=== PATIENT | male | born 1955 | race Caucasian/White ===

== ENCOUNTER → 2017-03-19 08:29 | Outpatient (CLI) | payer MEDICARE ==
[2015-07-22 00:57] VITALS: BMI 33.9
[~2017-03-19 08:29] MED LIST: AMOXICILLIN875 MG PO; BACTRIM DS TABL1 TAB PO; BAYER ASPIRIN325 MG PO; GLUCOPHAGE1000 MG PO; GLUCOPHAGE500 MG PO; IMDUR30 MG PO; LIPITOR40 MG PO; LOTREL 5/20 MG1 CAP PO; NEURONTIN 300300 MG PO; NIASPAN500 MG PO; PERCOCET 10/3251 TA1 PO; PLAVIX75 MG PO
== END | disposition home or self-care (01) ==
LOC: D.CT 08:29
DX: C61 Malignant neoplasm of prostate (principal)

== ENCOUNTER 2017-05-04 23:23 | Emergency (ER) | payer MEDICARE ==
[2015-07-22 00:57] VITALS: BMI 33.9
== END 2017-05-05 00:45 | disposition home or self-care (01) ==
LOC: D.ER 23:23
DX: S01.01XA Laceration without foreign body of scalp, initial encounter (principal); S61.411A Laceration without foreign body of right hand, initial encounter; W19.XXXA Unspecified fall, initial encounter; E11.9 Type 2 diabetes mellitus without complications; I10 Essential (primary) hypertension; Z95.1 Presence of aortocoronary bypass graft

== ENCOUNTER → 2017-06-26 13:00 | Outpatient (CLI) | payer MEDICARE ==
[2015-07-22 00:57] VITALS: BMI 33.9
== END | disposition home or self-care (01) ==
LOC: D.CT 13:00
DX: C61 Malignant neoplasm of prostate (principal)

== ENCOUNTER → 2017-07-04 10:12 | Outpatient (CLI) | payer MEDICARE ==
[2015-07-22 00:57] VITALS: BMI 33.9
== END | disposition home or self-care (01) ==
LOC: D.NM 10:12
DX: C61 Malignant neoplasm of prostate (principal)

== ENCOUNTER 2019-05-05 16:03 | Inpatient (IN) | payer MEDICARE ==
[~2019-05-05] VITALS: Ht 180.3 cm; Wt 112.5 kg
[2019-05-08] MEDS ORDERED: XTANDI40 MG PO (12:50)
[2019-05-11 09:32] LABS: BASOPHILS 0 % (0-2); EOSINOPHILS 2.1 % (0-7); HEMATOCRIT 38.7 % (42.0-54.0); HEMOGLOBIN 12.8 g/dL (13.5-17.5); IMMATURE GRANULOCYTES 0.7 % (0-5); LYMPHOCYTES 10.2 % (15-50); MCH 31.1 pg (26.0-34.0); MCHC 33.1 g/dL (31.0-37.0); MCV 93.9 fL (80.0-100.0); MEAN PLATELET VOLUME 8.9 fL (7.4-10.4); MONOCYTES 5.8 % (2-11); NEUTROPHILS 81.2 % (40-80); PLATELET COUNT 228 10x3/uL (130-400); RBC 4.12 10x6/uL (4.20-6.10); RDW 13.6 % (11.5-14.5); WBC 7.2 10x3/uL (4.8-10.8)
[2019-05-11 09:43] LABS: APTT 27.6 SECONDS (22.8-39.4); INR 1.11 (0.85-1.17); PROTIME 13.8 SECONDS (11.6-15.0)
[2019-05-11 10:03] LABS: ANION GAP 11.3 mmol/L (8-16); CARBON DIOXIDE 27.7 mmol/L (21.0-32.0); CREATININE - SERUM 1.2 mg/dL (0.6-1.3)
[2019-05-11] MEDS ORDERED: BAYER CHEWABLE81 MG PO (10:42)
[2019-05-11 10:50] VITALS: BP 165/82; BMI 34.6
[2019-05-12 03:50] VITALS: BP 111/58; BMI 34.6
[2019-05-12 04:31] VITALS: BP 110/65
[2019-05-12 06:27] LABS: BASOPHILS 0.1 % (0-2); EOSINOPHILS 0.1 % (0-7); IMMATURE GRANULOCYTES 0.3 % (0-5); LYMPHOCYTES 4.9 % (15-50); MCH 30.3 pg (26.0-34.0); MCHC 31.9 g/dL (31.0-37.0); MCV 94.9 fL (80.0-100.0); MEAN PLATELET VOLUME 9.3 fL (7.4-10.4); MONOCYTES 7.5 % (2-11); NEUTROPHILS 87.1 % (40-80); PLATELET COUNT 246 10x3/uL (130-400); RDW 13.8 % (11.5-14.5)
[2019-05-12 06:41] LABS: HEMATOCRIT 29.8 % (42.0-54.0); HEMOGLOBIN 9.5 g/dL (13.5-17.5); RBC 3.14 10x6/uL (4.20-6.10); WBC 11.1 10x3/uL (4.8-10.8)
[2019-05-12 06:50] LABS: ALBUMIN 2.6 g/dL (3.4-5.0); ANION GAP 10.7 mmol/L (8-16); BILIRUBIN - TOTAL 0.32 mg/dL (0.2-1.3); CALCIUM 7.8 mg/dL (8.5-10.1); CARBON DIOXIDE 26.2 mmol/L (21.0-32.0); CREATININE - SERUM 1.2 mg/dL (0.6-1.3); PROTEIN - SERUM 5.8 g/dL (6.4-8.2)
[2019-05-12 06:52] LABS: POTASSIUM - SERUM 4.9 mmol/L (3.5-5.1)
--- NOTE | 2019-05-12 08:15 | OP ---
PATIENT NAME: NILSA ANDERSON MEDICAL RECORD: [id number] :53 LOCATION:D.[id number] ADMISSION DATE:05/11/19 SURGEON: MAR HERR MD DATE OF OPERATION: 05/11/2019 SURGEON: Mar Del RioJNona Herr MD PREOPERATIVE DIAGNOSES: 1. Colon cancer. 2. Prostate cancer. 3. Diabetes. 4. Hypertension. 5. Coronary artery disease. POSTOPERATIVE DIAGNOSES: 1. Colon cancer. 2. Prostate cancer. 3. Diabetes. 4. Hypertension. 5. Coronary artery disease. PROCEDURES PERFORMED: 1. Exploratory laparotomy. 2. Total abdominal colectomy with end ileostomy. 3. Mobilization of splenic flexure. 4. Lysis of adhesions. 5. Placement of left subclavian tunneled port with immediate interpretation of fluoroscopy. ANESTHESIA: General. COMPLICATIONS: None. SPECIMENS: Colon and mesentery. ESTIMATED BLOOD LOSS: 1000 cc. WOUND CLASS: Clean/contaminated. COMPLICATIONS: None. OPERATIVE COURSE: After consent was obtained, the patient was taken to the operating room and placed in the supine position on the operating table. Next, general anesthesia was given. Time-out was taken to confirm correct patient and procedure. The PowerPort was done first. The left chest was prepped and draped in typical sterile fashion. External landmarks were identified. An Ioban dressing was placed. Time-out was taken to confirm correct patient and procedure. A 30 cc of local anesthetic was injected in the left chest wall. The left subclavian vein was cannulated on the first pass. Under fluoroscopy, a guidewire was advanced with the needle into the atriocaval junction. The needle was removed. The dilator and breakaway sheath were then passed over the wire in standard Seldinger fashion. A skin incision was made on the left chest wall with a #15 blade scalpel. Dissection was continued with electrocautery to the pectoralis fascia. A pocket was created using OPERATIVE REPORT [id number] NILSA ANDERSON electrocautery. The tunneling device was then used to tunnel the catheter from the skin incision site to the needle stick site. The catheter was cut to length. The wire and the dilator were removed. The catheter was passed through the breakaway sheath under fluoroscopy and advanced to the atriocaval junction. The breakaway sheath was removed. The port was accessed. Blood was aspirated. It was then flushed with 30 cc of normal saline with 5000 units of heparin. The port was then secured to the pectoralis fascia using interrupted 2-0 Prolene suture. The subcutaneous tissue was reapproximated using 3-0 Vicryl suture. The skin was reapproximated using 4-0 Monocryl running subcuticular sutures. Skin was reinforced with Mastisol and Steri-Strips. At the end of the case, all needle and instrument counts were correct. No complications occurred. At this time, all dressings were removed. The abdomen was then prepped and draped in typical sterile fashion, and Ioban dressing was again placed. The previous skin incision was opened from the pubis to just above the umbilicus. Using a #15 blade scalpel, dissection was continued to subcutaneous tissues and electrocautery. Once the fascia was identified, it was incised with electrocautery. The peritoneum was grasped with Eduarda clamps and was incised with Metzenbaum scissors. Under direct vision, remaining portion of the incision was opened with electrocautery. An David wound retractor was placed into the abdomen. At this time, extensive lysis of adhesions was performed. Once the lysis of adhesions was completed, there was full mobilization of the small bowel. The small bowel was followed from the ligament of Treitz to the ileocolonic anastomosis that was in the upper midline. A mesenteric window was created just proximal to the ileocolonic anastomosis. The terminal ileum was transected using a linear cutting 75-mm stapler. The mesentery was taken with the Harmonic scalpel. Next, the splenic flexure was mobilized using combination of electrocautery and Harmonic scalpel dissection. Once the splenic flexure was mobilized, the white line of Toldt was taken using electrocautery to allow full mobilization of the transverse colon and the descending colon. Next, the mesentery was taken using the Harmonic scalpel to the level of the pelvis. The left ureter was dissected out and intact. A Vesseloop was placed. The right ureter was dissected out and Vesseloop was placed. At this time, the remaining portion of the mesentery was taken using the Harmonic scalpel. The avascular plane on the sacral promontory was opened using blunt dissection. The peritoneal reflection was opened using electrocautery. The remaining portion of the colon and rectum dissection was completed using combination of electrocautery and Harmonic scalpel. The Contour stapler with green load stapler was then used to staple off the distal rectum. The remaining mesentery was divided with the Harmonic scalpel. At this time, the specimen was passed off the field and sent for permanent pathology. The abdomen was irrigated with 5 liters of warm normal saline. Careful attention was paid to hemostasis. Methylene blue was administered half-way during the early portion of the case. There was no evidence of discolored fluid within the abdomen or the pelvis. The Vesseloops were removed. At this time, a circular incision was made in the right lower quadrant. Subcutaneous tissue was dissected down to the level of the anterior oblique fascia. A cruciate incision was made. The muscles were gently divided. The peritoneum was incised with electrocautery. A [place] was placed through the abdominal opening. The terminal ileum staple line was grasped and delivered through the incision to the anterior abdominal wall. At this time, all members of the surgical team changed gown and gloves using the sterile closure tray. The abdomen was reprepped and draped. The fascia was closed with #1 looped PDS. Skin was closed with godwin. Primapore dressings OPERATIVE REPORT [id number] NILSA ANDERSON were then placed for the midline wound. The ostomy was then prepped and draped in typical sterile fashion. The staple line was transected using electrocautery. The ileostomy was fashioned in a typical Makayla fashion using 3-0 Vicryl suture. An ostomy appliance was placed. At the end of the case, all needle and instrument counts were correct. No complications occurred. The patient was extubated and transferred to the PACU in stable condition. TRANSINT:[id number] Voice Confirmation ID: [id number] DOCUMENT ID: [id number] MAR HERR MD at 0815 CC: [id number] DICTATION DATE: 05/11/19 163 CASE MANAGER: 05/11/191923 ADM IN [facility] [address] [place] [id number]
[2019-05-12 08:46] VITALS: BP 122/65
[2019-05-12 13:15] VITALS: BP 116/63
[2019-05-12 14:32] VITALS: Ht 180.3 cm; Wt 112.5 kg
[2019-05-12 17:33] VITALS: BP 120/60
[2019-05-12 20:19] VITALS: BP 116/58
[2019-05-13 00:58] VITALS: BP 114/56
[2019-05-13 04:54] VITALS: BP 121/51
[2019-05-13 06:34] LABS: BASOPHILS 0 % (0-2); EOSINOPHILS 0.2 % (0-7); IMMATURE GRANULOCYTES 0.7 % (0-5); LYMPHOCYTES 5.3 % (15-50); MCH 30.4 pg (26.0-34.0); MCHC 31.5 g/dL (31.0-37.0); MCV 96.5 fL (80.0-100.0); MEAN PLATELET VOLUME 8.9 fL (7.4-10.4); MONOCYTES 8.2 % (2-11); NEUTROPHILS 85.6 % (40-80); PLATELET COUNT 206 10x3/uL (130-400); RDW 14.4 % (11.5-14.5)
[2019-05-13 06:47] LABS: ANION GAP 8.9 mmol/L (8-16); CREATININE - SERUM 1.1 mg/dL (0.6-1.3)
[2019-05-13 06:52] LABS: POTASSIUM - SERUM 3.9 mmol/L (3.5-5.1)
[2019-05-13 07:26] LABS: HEMATOCRIT 22.2 % (42.0-54.0)
[2019-05-13 15:13] LABS: HEMATOCRIT 25.9 % (42.0-54.0); HEMOGLOBIN 8.4 g/dL (13.5-17.5)
--- NOTE | 2019-05-13 16:52 | MORECARE ---
CASE MANAGEMENT DISCHARGE SUMMARY PATIENT: NILSA RICH UNIT: [id number] ADM DATE: 05/11/19 AGE: 64 : 54 SEX: M ROOM/BED: D.2228 AUTHOR: GABRIEL,DOC PHYSICIAN: REFERRING PHYSICIAN: MAR HERR MD DATE OF SERVICE: 05/13/19 Discharge Plan Patient Name: NILSA RICH Facility: [facility]:[place] : 1955 Planned Disposition: Home with Home Health Anticipated Discharge Date: Discharge Date: Expected LOS: Initial Reviewer: [email or web address] Initial Review Date: 05/13/2019 Generated: 05/13/19 5:52 pm DCPIA - Discharge Planning Initial Assessment Updated by [email or web address]: Marguerite Xie on 05/13/19 4:50 pm * Is the patient Alert and Oriented? Yes * How many steps to enter\exit or inside your home? 4/0 * PCP Bennie Nogueira * Pharmacy [facility] * Preadmission Environment Home with Family * ADLs Partial Dependent * Partial ADLs (Assistance needed) Ambulation Bathing Medication Management * Equipment Cane * List name and contact numbers for known caregivers / representatives who currently or will assist patient after discharge: Yumiko Rich - spouse - [phone] * Verbal permission to speak to the caregivers and representatives has been obtained from the patient. Yes * Community resources currently utilized None * Additional services required to return to the preadmission environment? Yes * Can the patient safely return to the preadmission environment? Yes * Has this patient been hospitalized within the prior 30 days at any hospital? No External Providers External Provider: [facility] Next Contact Date: Service Request Date: Service Type: Resolution: Reviewer: Comments: Coverage Notice Reviewer: [id number] - Marguerite Xie Notice Issued Date-Time: 05/13/2019 16:42 Notice Type: Patient Choice Letter Notice Delivered To: Family Member Relationship to Patient: Spouse Putty Remover Name: Yumiko Rich Delivery Method: HAND - Hand Delivered Natalie Days: Prior Verbal Notification: Recipient Understood Notice: Yes Recipient Signature: Yes Med Rec Note Co-signed by Attending: Coverage Notice Comment: HERMELINDO for 1. [facility] 2. [facility] Patient Name: NILSA RICH Page [id number] at 1652 All edits/amendments must be made on the electronic document DICTATION DATE: 05/13/191650 NUCLEAR SECURITY OFFICER: EMILIANO 05/13/191650 RPT#: [id number] DC DATE: STATUS: ADM IN [facility] [address] [place] [address] END OF REPORT
--- NOTE | 2019-05-13 17:00 | MORECARE ---
CASE MANAGEMENT DISCHARGE SUMMARY PATIENT: NILSA RICH UNIT: [id number] ADM DATE: 05/11/19 AGE: 64 : 54 SEX: M ROOM/BED: D.2228 AUTHOR: GABRIEL,DOC PHYSICIAN: REFERRING PHYSICIAN: MAR HERR MD DATE OF SERVICE: 05/13/19 Discharge Plan Patient Name: NILSA RICH Facility: [facility]:[place] : 1955 Planned Disposition: Home with Home Health Anticipated Discharge Date: Discharge Date: Expected LOS: Initial Reviewer: [email or web address] Initial Review Date: 05/13/2019 Generated: 05/13/19 6:00 pm Comments DCP- Discharge Planning Updated by [email or web address]: Marguerite Xie on 05/13/19 3:[address] Patient Name: NILSA RICH Admission Status: Elective Accout number: [id number] Admission Date: 05-11-2019 : 1955 Admission Diagnosis:MALIGNANT NEOPLASM OF COLON, UNSPECIFIED Attending: MAR HERR Current LOS: 2 Anticipated DC Date: Planned Disposition: Home with Home Health Primary Insurance: [employer] Discharge Planning Comments: CM met with patient to discuss discharge planning/needs, his is present in the room. Patient gives verbal permission to discuss discharge planning/needs with . Patient's states that he lives with her in a one level home, there are 4 steps to enter the home. He uses a cane if needed for ambulation and has no other medical equipment. I discussed the availability of rehab, SNF, DME and home health. states plan is to go home with home health. HERMELINDO for [facility] signed. I called [facility] and spoke with [facility]ara and clinical faxed. I gave them a list of ostomy DME companies in [place] as well as information on getting supplies mailed to them. I informed her that home health would take care of getting them the supplies and help with set up. CM will continue to follow and assist with discharge planning/needs. Swimming Pool Maintenance: Marguerite Xie DCPIA - Discharge Planning Initial Assessment Updated by [email or web address]: Marguerite Xie on 05/13/19 4:50 pm * Is the patient Alert and Oriented? Yes * How many steps to enter\exit or inside your home? 4/0 * PCP Bennie Nogueira * Pharmacy [facility] [address] * Preadmission Environment Home with Family * ADLs Partial Dependent * Partial ADLs (Assistance needed) Ambulation Bathing Medication Management * Equipment Cane * List name and contact numbers for known caregivers / representatives who currently or will assist patient after discharge: Yumiko Rich - spouse - [phone] * Verbal permission to speak to the caregivers and representatives has been obtained from the patient. Yes * Community resources currently utilized None * Additional services required to return to the preadmission environment? Yes * Can the patient safely return to the preadmission environment? Yes * Has this patient been hospitalized within the prior 30 days at any hospital? No Coverage Notice Reviewer: [id number] Aquilino Xie Notice Issued Date-Time: 05/13/2019 16:42 Notice Type: Patient Choice Letter Notice Delivered To: Family Member Relationship to Patient: Spouse Dairy Cattle Farmer Name: Yumiko Rich Delivery Method: HAND - Hand Delivered Natalie Days: Prior Verbal Notification: Recipient Understood Notice: Yes Recipient Signature: Yes Med Rec Note Co-signed by Attending: Coverage Notice Comment: HERMELINDO for 1. [facility]. [facility] Last DP export: 05/13/19 3:52 p Patient Name: NILSA RICH Page 11056 at 1700 All edits/amendments must be made on the electronic document DICTATION DATE: 05/13/19 1700 DYNAMOMETER REPAIRER: EMILIANO 05/13/19 1700 RPT#: [id number] DC DATE: STATUS: ADM IN [facility] [address] [place] [address] END OF REPORT
[2019-05-13 20:49] VITALS: BP 111/46
[2019-05-13 21:21] LABS: HEMATOCRIT 26.1 % (42.0-54.0); HEMOGLOBIN 8.5 g/dL (13.5-17.5)
[2019-05-14 00:39] VITALS: BP 134/56
[2019-05-14 04:54] VITALS: BP 133/56
[2019-05-14 07:22] LABS: BASOPHILS 0.1 % (0-2); EOSINOPHILS 1.2 % (0-7); HEMOGLOBIN 8.4 g/dL (13.5-17.5); IMMATURE GRANULOCYTES 0.6 % (0-5); LYMPHOCYTES 6.9 % (15-50); MCH 30.3 pg (26.0-34.0); MCHC 32.3 g/dL (31.0-37.0); MEAN PLATELET VOLUME 9.2 fL (7.4-10.4); MONOCYTES 6.7 % (2-11); NEUTROPHILS 84.5 % (40-80); PLATELET COUNT 214 10x3/uL (130-400); RBC 2.77 10x6/uL (4.20-6.10); RDW 15.5 % (11.5-14.5); WBC 10.8 10x3/uL (4.8-10.8)
[2019-05-14 07:23] LABS: MCV 93.9 fL (80.0-100.0)
[2019-05-14 07:48] LABS: CALC OSMOLALITY 281 mosm/kg (275-300); CALCIUM 8.4 mg/dL (8.5-10.1); CARBON DIOXIDE 27.6 mmol/L (21.0-32.0); CHLORIDE - SERUM 106 mmol/L (98-107); GLUCOSE 174 mg/dL (74-106); POTASSIUM - SERUM 3.7 mmol/L (3.5-5.1); SODIUM 140 mmol/L (136-145); UREA NITROGEN 10 mg/dL (7-18); eGFR NON AFRICAN AMERICAN 80 mL/min (90-120)
[2019-05-14 08:20] VITALS: BP 122/52
[2019-05-14 13:08] VITALS: BP 134/62
[2019-05-14 16:33] VITALS: BP 121/51
[2019-05-14 21:48] VITALS: BP 129/63
[2019-05-15 01:27] VITALS: BP 154/86
[2019-05-15 05:00] LABS: BASOPHILS 0.1 % (0-2); EOSINOPHILS 1.3 % (0-7); HEMATOCRIT 24.6 % (42.0-54.0); HEMOGLOBIN 8.1 g/dL (13.5-17.5); IMMATURE GRANULOCYTES 1.1 % (0-5); LYMPHOCYTES 7.5 % (15-50); MCHC 32.9 g/dL (31.0-37.0); MCV 94.3 fL (80.0-100.0); MEAN PLATELET VOLUME 8.9 fL (7.4-10.4); MONOCYTES 7.5 % (2-11); NEUTROPHILS 82.5 % (40-80); PLATELET COUNT 215 10x3/uL (130-400); RBC 2.61 10x6/uL (4.20-6.10); WBC 8.5 10x3/uL (4.8-10.8)
[2019-05-15 05:22] LABS: CALC OSMOLALITY 278 mosm/kg (275-300); CALCIUM 7.9 mg/dL (8.5-10.1); CHLORIDE - SERUM 103 mmol/L (98-107); CREATININE - SERUM 0.9 mg/dL (0.6-1.3); GLUCOSE 147 mg/dL (74-106); SODIUM 139 mmol/L (136-145); UREA NITROGEN 8 mg/dL (7-18); eGFR NON AFRICAN AMERICAN 90 mL/min (90-120)
[2019-05-15 05:24] LABS: POTASSIUM - SERUM 3.1 mmol/L (3.5-5.1)
[2019-05-15 06:07] VITALS: BP 135/55
[2019-05-15 09:24] VITALS: BP 110/61
[2019-05-15 12:58] VITALS: BP 132/63
[2019-05-15 16:32] VITALS: BP 118/63
[2019-05-15 20:43] VITALS: BP 127/64
[2019-05-16 04:48] VITALS: BP 125/54
[2019-05-16 08:34] LABS: BASOPHILS 0.1 % (0-2); EOSINOPHILS 1.9 % (0-7); HEMATOCRIT 26.6 % (42.0-54.0); HEMOGLOBIN 8.5 g/dL (13.5-17.5); IMMATURE GRANULOCYTES 1.1 % (0-5); LYMPHOCYTES 9.3 % (15-50); MCH 30.4 pg (26.0-34.0); MEAN PLATELET VOLUME 9.2 fL (7.4-10.4); MONOCYTES 8.8 % (2-11); NEUTROPHILS 78.8 % (40-80); PLATELET COUNT 234 10x3/uL (130-400); RDW 14.6 % (11.5-14.5); WBC 7.2 10x3/uL (4.8-10.8)
[2019-05-16 08:46] LABS: CALC OSMOLALITY 281 mosm/kg (275-300); CARBON DIOXIDE 33.9 mmol/L (21.0-32.0); CHLORIDE - SERUM 105 mmol/L (98-107); CREATININE - SERUM 0.8 mg/dL (0.6-1.3); GLUCOSE 149 mg/dL (74-106); POTASSIUM - SERUM 3.1 mmol/L (3.5-5.1); SODIUM 141 mmol/L (136-145); UREA NITROGEN 8 mg/dL (7-18); eGFR NON AFRICAN AMERICAN > 90 mL/min (90-120)
[2019-05-16 08:58] VITALS: BP 115/58
[2019-05-16 14:14] VITALS: BP 111/60
[2019-05-16 17:27] VITALS: BP 114/60
[2019-05-16 20:18] VITALS: BP 132/55
[2019-05-17 00:37] VITALS: BP 147/62
[2019-05-17 05:34] VITALS: BP 122/68
[2019-05-17 05:50] LABS: BASOPHILS 0.1 % (0-2); EOSINOPHILS 2.5 % (0-7); HEMATOCRIT 26.9 % (42.0-54.0); HEMOGLOBIN 8.7 g/dL (13.5-17.5); IMMATURE GRANULOCYTES 1.5 % (0-5); LYMPHOCYTES 8.8 % (15-50); MCH 30.5 pg (26.0-34.0); MCHC 32.3 g/dL (31.0-37.0); MCV 94.4 fL (80.0-100.0); MEAN PLATELET VOLUME 9.2 fL (7.4-10.4); MONOCYTES 8.4 % (2-11); NEUTROPHILS 78.7 % (40-80); PLATELET COUNT 276 10x3/uL (130-400); RBC 2.85 10x6/uL (4.20-6.10); RDW 14.6 % (11.5-14.5); WBC 7.9 10x3/uL (4.8-10.8)
[2019-05-17 06:03] LABS: CALC OSMOLALITY 282 mosm/kg (275-300); CALCIUM 8.2 mg/dL (8.5-10.1); CARBON DIOXIDE 32.4 mmol/L (21.0-32.0); CHLORIDE - SERUM 102 mmol/L (98-107); CREATININE - SERUM 0.9 mg/dL (0.6-1.3); GLUCOSE 160 mg/dL (74-106); POTASSIUM - SERUM 3.1 mmol/L (3.5-5.1); SODIUM 141 mmol/L (136-145); UREA NITROGEN 10 mg/dL (7-18); eGFR NON AFRICAN AMERICAN 90 mL/min (90-120)
[2019-05-17 08:30] VITALS: BP 153/65
[2019-05-17 13:20] VITALS: BP 121/48
[2019-05-17 16:12] VITALS: BP 120/55
[2019-05-17 20:33] VITALS: BP 133/59
[2019-05-18 05:08] VITALS: BP 122/72
[2019-05-18 06:25] LABS: BASOPHILS 0.1 % (0-2); EOSINOPHILS 2.7 % (0-7); HEMATOCRIT 27.3 % (42.0-54.0); HEMOGLOBIN 8.6 g/dL (13.5-17.5); IMMATURE GRANULOCYTES 1.3 % (0-5); LYMPHOCYTES 7.7 % (15-50); MCHC 31.5 g/dL (31.0-37.0); MCV 95.1 fL (80.0-100.0); MEAN PLATELET VOLUME 9.2 fL (7.4-10.4); MONOCYTES 8.7 % (2-11); NEUTROPHILS 79.5 % (40-80); PLATELET COUNT 316 10x3/uL (130-400); RBC 2.87 10x6/uL (4.20-6.10); RDW 14.8 % (11.5-14.5); WBC 9.4 10x3/uL (4.8-10.8)
[2019-05-18 06:45] LABS: CALC OSMOLALITY 280 mosm/kg (275-300); CALCIUM 8.5 mg/dL (8.5-10.1); CARBON DIOXIDE 29.2 mmol/L (21.0-32.0); CHLORIDE - SERUM 102 mmol/L (98-107); CREATININE - SERUM 0.8 mg/dL (0.6-1.3); GLUCOSE 158 mg/dL (74-106); POTASSIUM - SERUM 3.5 mmol/L (3.5-5.1); SODIUM 139 mmol/L (136-145); eGFR NON AFRICAN AMERICAN > 90 mL/min (90-120)
[2019-05-18 06:46] LABS: UREA NITROGEN 13 mg/dL (7-18)
[2019-05-18] MEDS ORDERED: HYDROCODON-ACE1 EAC7 PO (08:03)
[2019-05-18] MEDS ORDERED: LOMOTIL 2.5-0.1 EAC1 PO (08:03)
--- NOTE | 2019-05-18 08:50 | MORECARE ---
CASE MANAGEMENT DISCHARGE SUMMARY PATIENT: NILSA RICH UNIT: [id number] ADM DATE: 05/11/19 AGE: 64 : 54 SEX: M ROOM/BED: D.2228 AUTHOR: GABRIEL,DOC PHYSICIAN: REFERRING PHYSICIAN: MAR HERR MD DATE OF SERVICE: 05/18/19 Discharge Plan Patient Name: NILSA RICH Facility: [facility]:[place] : 1955 Planned Disposition: Home with Home Health Anticipated Discharge Date: Discharge Date: Expected LOS: Initial Reviewer: [email or web address] Initial Review Date: 05/13/2019 Generated: 05/18/19 9:50 am Comments DCP- Discharge Planning Updated by [id number]: Valeria Tello on 05/18/19 7:[address] Patient Name: NILSA RICH Admission Status: Elective Accout number: [id number] Admission Date: 05-11-2019 : 1955 Admission Diagnosis:MALIGNANT NEOPLASM OF COLON, UNSPECIFIED Attending: MAR HERR Current LOS: 7 Anticipated DC Date: Planned Disposition: Home with Home Health Primary Insurance: [employer] Discharge Planning Comments: PT DISCHARGING TODAY WITH [facility]. ORDERS FAXED TO PROVIDER. CM INFORMED [facility] WOUND NURSE THAT PT NEEDED TEACHING BEFORE DC. IMM SIGNED AND PLACED IN MEDCIAL RECORD. Energy Sales Consultant: Valeria Tello DCP- Discharge Planning Updated by [id number]: Marguerite Xie on 05/13/19 3:[address] Patient Name: NILSA RICH Admission Status: Elective Accout number: [id number] Admission Date: 05-11-2019 : 1955 Admission Diagnosis:MALIGNANT NEOPLASM OF COLON, UNSPECIFIED Attending: MAR HERR Current LOS: 2 Anticipated DC Date: Planned Disposition: Home with Home Health Primary Insurance: [employer] Discharge Planning Comments: CM met with patient to discuss discharge planning/needs, his is present in the room. Patient gives verbal permission to discuss discharge planning/needs with . Patient's states that he lives with her in a one level home, there are 4 steps to enter the home. He uses a cane if needed for ambulation and has no other medical equipment. I discussed the availability of rehab, SNF, DME and home health. states plan is to go home with home health. HERMELINDO for [facility] signed. I called [facility] and spoke with Sahara and clinical faxed. I gave them a list of ostomy DME companies in [place] as well as information on getting supplies mailed to them. I informed her that home health would take care of getting them the supplies and help with set up. CM will continue to follow and assist with discharge planning/needs. Energy Sales Consultant: Marguerite Xie DCPIA - Discharge Planning Initial Assessment Updated by [email or web address]: Marguerite Xie on 05/13/19 4:50 pm * Is the patient Alert and Oriented? Yes * How many steps to enter\exit or inside your home? 4/0 * PCP Bennie Nogueira * Pharmacy [facility] [address] * Preadmission Environment Home with Family * ADLs Partial Dependent * Partial ADLs (Assistance needed) Ambulation Bathing Medication Management * Equipment Cane * List name and contact numbers for known caregivers / representatives who currently or will assist patient after discharge: Yumiko Rich - spouse - [phone] * Verbal permission to speak to the caregivers and representatives has been obtained from the patient. Yes * Community resources currently utilized None * Additional services required to return to the preadmission environment? Yes * Can the patient safely return to the preadmission environment? Yes * Has this patient been hospitalized within the prior 30 days at any hospital? No Coverage Notice Reviewer: [id number] - Marguerite Xie Notice Issued Date-Time: 05/13/2019 16:42 Notice Type: Patient Choice Letter Notice Delivered To: Family Member Relationship to Patient: Spouse Manager Housekeeping Name: Yumiko Rich Delivery Method: HAND - Hand Delivered Natalie Days: Prior Verbal Notification: Recipient Understood Notice: Yes Recipient Signature: Yes Med Rec Note Co-signed by Attending: Coverage Notice Comment: HERMELINDO for 1. [facility] 2. [facility] Reviewer: [id number] Aquilino Tello Notice Issued Date-Time: 05/18/2019 8:40 Notice Type: IM Discharge Notice Notice Delivered To: Patient Relationship to Patient: Self Manager Housekeeping Name: Delivery Method: HAND - Hand Delivered Natalie Days: Prior Verbal Notification: Recipient Understood Notice: Yes Recipient Signature: Yes Med Rec Note Co-signed by Attending: Coverage Notice Comment: Last DP export: 05/13/19 4:00 p Patient Name: NILSA RICH Page [phone] at 0850 All edits/amendments must be made on the electronic document DICTATION DATE: 05/18/1949 APPLICATIONS PROGRAMMER ANALYST: EMILIANO 05/18/1950 RPT#: [id number] DC DATE: STATUS: ADM IN [facility] [address] [place] [address] END OF REPORT
[2019-05-18 09:11] VITALS: BP 119/69
--- NOTE | 2019-05-18 12:47 | MORECARE ---
CASE MANAGEMENT DISCHARGE SUMMARY PATIENT: NILSA RICH UNIT: [id number] ADM DATE: 05/11/19 AGE: 64 : 53 SEX: M ROOM/BED: D.2228 AUTHOR: GABRIEL,DOC PHYSICIAN: REFERRING PHYSICIAN: MAR HERR MD DATE OF SERVICE: 05/18/19 Discharge Plan Patient Name: NILSA RICH Facility: [facility]:[place] : 1955 Planned Disposition: Home with Home Health Anticipated Discharge Date: Discharge Date: 05/18/2019 Expected LOS: Initial Reviewer: [email or web address] Initial Review Date: 05/13/2019 Generated: 05/18/19 1:46 pm Comments DCP- Discharge Planning Updated by [id number]: Valeria Tello on 05/18/19 7:[address] Patient Name: NILSA RICH Admission Status: Elective Accout number: [id number] Admission Date: 05-11-2019 : 1955 Admission Diagnosis:MALIGNANT NEOPLASM OF COLON, UNSPECIFIED Attending: MAR HERR Current LOS: 7 Anticipated DC Date: Planned Disposition: Home with Home Health Primary Insurance: [employer] Discharge Planning Comments: PT DISCHARGING TODAY WITH [facility]. ORDERS FAXED TO PROVIDER. CM INFORMED [facility] WOUND NURSE THAT PT NEEDED TEACHING BEFORE DC. IMM SIGNED AND PLACED IN MEDCIAL RECORD. Hypoid Gear Tester: Valeria Tello DCP- Discharge Planning Updated by [email or web address]: Marguerite Xie on 05/13/19 3:[address] Patient Name: NILSA RICH Admission Status: Elective Accout number: [id number] Admission Date: 05-11-2019 : 1955 Admission Diagnosis:MALIGNANT NEOPLASM OF COLON, UNSPECIFIED Attending: MAR HERR Current LOS: 2 Anticipated DC Date: Planned Disposition: Home with Home Health Primary Insurance: [employer] Discharge Planning Comments: CM met with patient to discuss discharge planning/needs, his is present in the room. Patient gives verbal permission to discuss discharge planning/needs with . Patient's states that he lives with her in a one level home, there are 4 steps to enter the home. He uses a cane if needed for ambulation and has no other medical equipment. I discussed the availability of rehab, SNF, DME and home health. states plan is to go home with home health. HERMELINDO for [facility] signed. I called [facility] and spoke with Sahara and clinical faxed. I gave them a list of ostomy DME companies in [place] as well as information on getting supplies mailed to them. I informed her that home health would take care of getting them the supplies and help with set up. CM will continue to follow and assist with discharge planning/needs. Hypoid Gear Tester: Marguerite Xie DCPIA - Discharge Planning Initial Assessment Updated by [id number]: Marguerite Xie on 05/13/19 4:50 pm * Is the patient Alert and Oriented? Yes * How many steps to enter\exit or inside your home? 4/0 * PCP Bennie Nogueira * Pharmacy [facility] [address] * Preadmission Environment Home with Family * ADLs Partial Dependent * Partial ADLs (Assistance needed) Ambulation Bathing Medication Management * Equipment Cane * List name and contact numbers for known caregivers / representatives who currently or will assist patient after discharge: Yumiko Rich - spouse - [phone] * Verbal permission to speak to the caregivers and representatives has been obtained from the patient. Yes * Community resources currently utilized None * Additional services required to return to the preadmission environment? Yes * Can the patient safely return to the preadmission environment? Yes * Has this patient been hospitalized within the prior 30 days at any hospital? No Coverage Notice Reviewer: [id number] - Marguerite Xie Notice Issued Date-Time: 05/13/2019 16:42 Notice Type: Patient Choice Letter Notice Delivered To: Family Member Relationship to Patient: Spouse Optomechanical Engineer Name: Yumiko Rich Delivery Method: HAND - Hand Delivered Natalie Days: Prior Verbal Notification: Recipient Understood Notice: Yes Recipient Signature: Yes Med Rec Note Co-signed by Attending: Coverage Notice Comment: HERMELINDO for 1. [facility] 2. [facility] Reviewer: [email or web address] Aquilino Tello Notice Issued Date-Time: 05/18/2019 8:40 Notice Type: IM Discharge Notice Notice Delivered To: Patient Relationship to Patient: Self Optomechanical Engineer Name: Delivery Method: HAND - Hand Delivered Natalie Days: Prior Verbal Notification: Recipient Understood Notice: Yes Recipient Signature: Yes Med Rec Note Co-signed by Attending: Coverage Notice Comment: Last DP export: 05/18/19 7:50 a Patient Name: NILSA RICH Page 24747 at 1247 All edits/amendments must be made on the electronic document DICTATION DATE: 05/18/19 1246 CARGO SERVICE SUPERVISOR: EMILIANO 05/18/19 1246 RPT#: [id number] DC DATE:05/18/19 STATUS: DIS IN [facility] [address] [place] [address] END OF REPORT
== END 2019-05-18 10:11 | disposition home health service (06) | DRG 330 ==
LOC: D.SDCHOLD 05-11 08:59 → D.MS 05-11 08:59 → D.SDCHOLD 05-11 11:00 → D.MS 05-11 17:27
PROVIDERS: Anesthesiology; ADMIT Surgery; ATTEND Surgery
PROC: 0JH63XZ Insertion of Tunneled Vascular Access Device into Chest Subcutaneous Tissue and Fascia, Percutaneous Approach (ICD-10-PCS; 2019-05-11)
PROC: 0DTE0ZZ Resection of Large Intestine, Open Approach (ICD-10-PCS; principal; 2019-05-11 11:20)
PROC: 0D1B0Z4 Bypass Ileum to Cutaneous, Open Approach (ICD-10-PCS; 2019-05-11 11:20)
DX: C18.9 Malignant neoplasm of colon, unspecified (principal); D62 Acute posthemorrhagic anemia; C61 Malignant neoplasm of prostate

== ENCOUNTER 2019-06-06 19:37 | Inpatient (IN) | payer MEDICARE ==
[~2019-06-06] VITALS: Ht 180.3 cm; Wt 102.1 kg
[~2019-06-06 19:37] MED LIST changes: +BAYER CHEWABLE81 MG PO; +HYDROCODON-ACE1 EAC7 PO; +LOMOTIL 2.5-0.1 EAC1 PO; +XTANDI40 MG PO
[2019-06-06] MEDS ORDERED: AUGMENTIN 875-11 TAB PO (19:52)
[2019-06-06] MEDS ORDERED: MACRODANTIN100 MG PO (19:52)
[2019-06-06 20:05] LABS: BASOPHILS 0.1 % (0-2); HEMATOCRIT 34.5 % (42.0-54.0); HEMOGLOBIN 11.8 g/dL (13.5-17.5); IMMATURE GRANULOCYTES 0.3 % (0-5); LYMPHOCYTES 10.4 % (15-50); MCH 30.2 pg (26.0-34.0); MCHC 34.2 g/dL (31.0-37.0); MCV 88.2 fL (80.0-100.0); MEAN PLATELET VOLUME 9.2 fL (7.4-10.4); MONOCYTES 7.8 % (2-11); NEUTROPHILS 80.4 % (40-80); PLATELET COUNT 320 10x3/uL (130-400); RBC 3.91 10x6/uL (4.20-6.10); RDW 13.5 % (11.5-14.5)
[2019-06-06 20:23] LABS: ALBUMIN 4.1 g/dL (3.4-5.0); ANION GAP 21.1 mmol/L (8-16); BILIRUBIN - TOTAL 0.45 mg/dL (0.2-1.3); CALCIUM 9.8 mg/dL (8.5-10.1); CARBON DIOXIDE 20.3 mmol/L (21.0-32.0); CREATININE - SERUM 4.5 mg/dL (0.6-1.3); POTASSIUM - SERUM 4.4 mmol/L (3.5-5.1); PROTEIN - SERUM 8.7 g/dL (6.4-8.2)
[2019-06-06 20:58] LABS: APPEARANCE TURBID (CLEAR); BILIRUBIN NEGATIVE (NEGATIVE); COLOR RED (YELLOW); GLUCOSE NEGATIVE (NEGATIVE); KETONE NEGATIVE (NEGATIVE); NITRITE NEGATIVE (NEGATIVE); PROTEIN 2+ mg/dL (NEGATIVE); SPECIFIC GRAVITY 1.025 (1.005-1.020); UROBILINOGEN NORMAL (NORMAL)
[2019-06-06 20:59] LABS: AMORPHOUS SEDIMENT <1+ /lpf (NONE SEEN); RED CELLS - URINE 25-50 /hpf (0-5); WHITE CELLS - URINE 0-5 /hpf (0-5)
--- NOTE | 2019-06-06 21:00 | NUR ---
BLADDER SCAN PERFORMED, 0 ML NOTED. EDP NOTIFIED.
--- NOTE | 2019-06-06 21:45 | NUR ---
PT RESTING ON BED. NO S/S OF ACUTE DISTRESS NOTED. PT SPOUSE AT BEDSIDE.
--- NOTE | 2019-06-06 22:25 | NUR ---
pt ambulated to restroom independently without difficulty. no distress noted.
[2019-06-07] VITALS (7 sets, daily range): BP systolic 74–118; BP diastolic 40–64; BMI 31.4
--- NOTE | 2019-06-07 00:18 | NUR ---
PT ARRIVED TO UNIT BY BED AND AMBULATED FROM BED TO BED. PT PRESENTS WITH A CLARKE CATH WITH URINE OUTPUT IN BAG. A/O X4. RESP EVEN AND UNLABORED. CL IN REACH. PT ALSO PRESENTS WITH COLOSTOMY BAG INTACT. IV NOTED TO LEFT AC WITH NS ATTACHED. WILL CONTINUE TO MONITOR.
--- NOTE | 2019-06-07 01:54 | NUR ---
PT COMPLAINING OF RESTLESS LEGS. TELEPHONE ORDER FROM BRONWYN VALERIO FOR TYLENOL 650 Q4PRN. TYLENOL GIVEN PER ORDER. DENIES FURTHER NEEDS. WCTM CL IN REACH. IN ROOM.
[2019-06-07 05:29] LABS: BASOPHILS 0.1 % (0-2); EOSINOPHILS 2.1 % (0-7); IMMATURE GRANULOCYTES 0.4 % (0-5); LYMPHOCYTES 14.4 % (15-50); MCH 29.9 pg (26.0-34.0); MCHC 34.1 g/dL (31.0-37.0); MCV 87.7 fL (80.0-100.0); MONOCYTES 9.5 % (2-11); NEUTROPHILS 73.5 % (40-80); RDW 13.5 % (11.5-14.5)
[2019-06-07 05:31] LABS: HEMATOCRIT 26.4 % (42.0-54.0); PLATELET COUNT 223 10x3/uL (130-400); RBC 3.01 10x6/uL (4.20-6.10); WBC 7.7 10x3/uL (4.8-10.8)
[2019-06-07 05:49] LABS: ANION GAP 17.3 mmol/L (8-16); CALCIUM 8.2 mg/dL (8.5-10.1); CARBON DIOXIDE 18.1 mmol/L (21.0-32.0); CREATININE - SERUM 3.7 mg/dL (0.6-1.3)
[2019-06-07 05:50] LABS: POTASSIUM - SERUM 3.4 mmol/L (3.5-5.1)
--- NOTE | 2019-06-07 06:26 | NUR ---
PT RESTING QUIETLY. CL IN REACH. NO DISTRESS NOTED. RESP EVEN AND UNLABORED. IN ROOM. PT EMPTIES OUT OWN COLOSTOMY OUTPUT FROM THIS SHIFT WAS 300CC AND URINE OUTPUT WAS 550CC. WCTM
--- NOTE | 2019-06-07 07:30 | NUR ---
AWAKE AND ALERT. ORIENTED X3. NO C/O AT THIS TIME. LUNGS ARE CLEAR BILATERALLY, NO COUGH NOTED. SKIN IS INTACT WITHOUT REDNESS. ILEOSTOMY IS PATENT WITH LIQUID GREENISH STOOL. STOMA IS PINK AND VIABLE. IV TO LEFT FOREARM IS PATENT WITHOUT REDNESS AT INSERTION SITE. CLARKE PATENT WITH CLEAR YELLOW URINE. DENIES NEEDS.
--- NOTE | 2019-06-07 10:00 | NUR ---
DR HERR HERE. NEW ORDERS RECIEVED.
[2019-06-07 11:05] LABS: % SATURATION 22 % (15-55); IRON 65 ug/dl (35-150); TOTAL IRON BIND CAPACITY 293 ug/dl (260-445); UNSAT IRON BIND CAPACITY 228 ug/dl (150-375)
--- NOTE | 2019-06-07 11:30 | NUR ---
FSBS 100. NO COVERAGE REQUIRED.FAMILY AT BEDSIDE.
[2019-06-07 13:23] LABS: APPEARANCE CLEAR (CLEAR); BILIRUBIN NEGATIVE (NEGATIVE); COLOR STRAW (YELLOW); GLUCOSE NEGATIVE (NEGATIVE); KETONE NEGATIVE (NEGATIVE); NITRITE NEGATIVE (NEGATIVE); PROTEIN TRACE mg/dL (NEGATIVE); UROBILINOGEN NORMAL (NORMAL)
[2019-06-07 13:26] LABS: BACTERIA FEW /hpf (NONE SEEN); EPITHELIAL CELLS 0-5 /hpf (0-5); RED CELLS - URINE 0-5 /hpf (0-5); WHITE CELLS - URINE 0-5 /hpf (0-5)
--- NOTE | 2019-06-07 17:00 | NUR ---
FSBS 95. NO ACTION TAKEN
--- NOTE | 2019-06-07 18:47 | NUR ---
ATE MOST OF CL SUPPER. OSTOMY IS LEAKING. APPLIANCE CHANGED PER STAFF. INSTRUCTED IN CARE OF SAME. ALL QUESTIONS ANSWERED. BP CONTINUES LOW AFTER BOLUS COMPLETED. WILL MONITOR.
--- NOTE | 2019-06-07 19:30 | NUR ---
PT ALERT, VOICES NEEDS, AT BEDSIDE, NO C/O @ THIS TIME
--- NOTE | 2019-06-07 21:45 | NUR ---
PT ASLEEP WITH NO DISTRESS NOTED
--- NOTE | 2019-06-08 | NUR ---
PT AWAKE SITTING UP IN CHAIR WATCHING TV WITH NO C/O
[2019-06-08 00:30] VITALS: BP 85/41
--- NOTE | 2019-06-08 02:00 | NUR ---
PT ASLEEP IN BED WITHOUT DISTRESS
--- NOTE | 2019-06-08 04:00 | NUR ---
PT AROUSES EASILY, VOICES NEEDS, VITALS STABLE
[2019-06-08 04:25] VITALS: BP 88/40
--- NOTE | 2019-06-08 06:07 | NUR ---
PT AWAKE, NO C/O, NO CHANGES NOTED
[2019-06-08 06:29] LABS: BASOPHILS 0.2 % (0-2); EOSINOPHILS 3.5 % (0-7); HEMATOCRIT 23.9 % (42.0-54.0); HEMOGLOBIN 7.8 g/dL (13.5-17.5); IMMATURE GRANULOCYTES 0.2 % (0-5); LYMPHOCYTES 14.3 % (15-50); MCH 29.4 pg (26.0-34.0); MCHC 32.6 g/dL (31.0-37.0); MEAN PLATELET VOLUME 9.1 fL (7.4-10.4); MONOCYTES 8.4 % (2-11); NEUTROPHILS 73.4 % (40-80); PLATELET COUNT 187 10x3/uL (130-400); RBC 2.65 10x6/uL (4.20-6.10); RDW 13.7 % (11.5-14.5)
[2019-06-08 06:35] LABS: MCV 90.2 fL (80.0-100.0); WBC 4.9 10x3/uL (4.8-10.8)
[2019-06-08 06:39] LABS: ANION GAP 13.8 mmol/L (8-16); CARBON DIOXIDE 22.3 mmol/L (21.0-32.0)
[2019-06-08 06:41] LABS: CREATININE - SERUM 2.3 mg/dL (0.6-1.3); POTASSIUM - SERUM 4.1 mmol/L (3.5-5.1)
--- NOTE | 2019-06-08 07:32 | NUR ---
AM ROUNDS PT UP TO CHAIR, RESTING COMFORTABLY WITH EYES CLOSED, EASILY AROUSES TO VOICE. INTRODUCED SELF PT'S NURSE FOR TODAY. PT A/O X4, RESP EVEN AND NONLABORED ON RA. LT AC INFUSING NS AT 250. LT INFUSAPORT SL. CLARKE DRAINING YELLOW URINE TO GRAVITY. PT DENIES ANY NEEDS AT THIS TIME. CALL LIGHT IN AIDAN, RUBIN NOTED,W ILL CONTINUE PLAN OF CARE.
[2019-06-08 09:33] VITALS: BP 113/41
--- NOTE | 2019-06-08 10:15 | NUR ---
UNIT OF PRBCS STARTED INFUSING, TO LT UPPER CHEST INFUSAPORT. VITAL SIGNS STABLE, ALSO GAVE AM MEDS AT THIS TIME. HELD BP DUE TO LOW BP. PT DENIES ANY NEEDS AT THIS TIME, CALL LIGHT IN REACH, NAD NOTED,W ILL CONTINUE PLAN OF CARE.
--- NOTE | 2019-06-08 11:36 | NUR ---
BLOOD SUGAR OF 116, NO COVERAGE NEEDED PER S/S. PT DENIES ANY NEEDS AT THIS TIME. CALL LIGHT IN REACH, NAD NOTED, WILL CONTINUE TO MONITOR.
[2019-06-08 12:06] VITALS: Ht 180.3 cm; Wt 102.1 kg
[2019-06-08 12:16] VITALS: BP 106/55
[2019-06-08 16:20] VITALS: BP 125/66
--- NOTE | 2019-06-08 16:57 | NUR ---
BLOOD SUGAR OF 161, PT REFUSED COVERAGE AT THIS TIME. UP TO CHAIR, EATING DINNER, DENIES ANY NEEDS AT THIS TIME. CALL LIGHT IN REACH, NAD NOTED, WILL CONTINUE TO MONITOR.
--- NOTE | 2019-06-08 19:29 | NUR ---
PATIENT RESTING IN BED AND DENIES NEEDS AT THIS TIME. BED IN LOWEST POSITION AND CALL LIGHT WITHIN REACH. ENCOURAGED THE PATIENT TO CALL IF HE HAS NEEDS. WILL CONTINUE TO MONITOR.
[2019-06-08 20:00] VITALS: BP 125/57
[2019-06-09 06:58] VITALS: BP 127/70
[2019-06-09 07:01] LABS: BASOPHILS 0 % (0-2); EOSINOPHILS 5.5 % (0-7); IMMATURE GRANULOCYTES 0.2 % (0-5); MCH 29.4 pg (26.0-34.0); MCHC 32.9 g/dL (31.0-37.0); MCV 89.6 fL (80.0-100.0); MEAN PLATELET VOLUME 9.2 fL (7.4-10.4); MONOCYTES 9.1 % (2-11); NEUTROPHILS 75.2 % (40-80); PLATELET COUNT 191 10x3/uL (130-400); RDW 14.1 % (11.5-14.5); WBC 5.3 10x3/uL (4.8-10.8)
[2019-06-09 07:13] LABS: ANION GAP 14.6 mmol/L (8-16); CALCIUM 8.2 mg/dL (8.5-10.1); CARBON DIOXIDE 21.6 mmol/L (21.0-32.0); CREATININE - SERUM 1.9 mg/dL (0.6-1.3); POTASSIUM - SERUM 4.2 mmol/L (3.5-5.1)
[2019-06-09 07:19] LABS: HEMATOCRIT 29.2 % (42.0-54.0); HEMOGLOBIN 9.6 g/dL (13.5-17.5); RBC 3.26 10x6/uL (4.20-6.10)
[2019-06-09 08:00] VITALS: BP 138/67
--- NOTE | 2019-06-09 09:29 | NUR ---
AM MEDS GIVEN AT THIS TIME. PT UP TO CHAIR, A/O X4, RESP EVEN AND NONLABORED ON RA. LT AC IV SL, LT CHEST INFUSAPORT INFUSING NS AT 125CC/HR. PT DENIES ANY NEEDS AT THIS TIME. CALL LIGHT IN REACH, NAD NOTED, WILL CONTINUE TO MONITOR.
--- NOTE | 2019-06-09 10:41 | NUR ---
CLARKE CATHETER REMOVED WITH CATHETER TIP INTACT. PT TOLERATED WELL. PT UP TO CHAIR, DENIES ANY NEEDS AT THIS TIME. CALL LIGHT IN REACH, NAD NOTED, WILL CONTINUE PLAN OF CARE.
--- NOTE | 2019-06-09 12:15 | MORECARE ---
CASE MANAGEMENT DISCHARGE SUMMARY PATIENT: NILSA RICH UNIT: [id number] ADM DATE: 06/06/19 AGE: 64 : 53 SEX: M ROOM/BED: D.1208 AUTHOR: EDGARD RIOS PHYSICIAN: REFERRING PHYSICIAN: SERGIO JORGENSEN MD DATE OF SERVICE: 06/09/19 Discharge Plan Patient Name: [facility]ILSA RICH [facility] [facility] 1955 Planned Disposition: Home with Home Health Anticipated Discharge Date: 06/11/19 Discharge Date: Expected LOS: 5 Initial Reviewer: [email or web address] Initial Review Date: 06/07/2019 Generated: 06/09/19 1:15 pm DCPIA - Discharge Planning Initial Assessment Updated by [email or web address]: Swati Ocampo on 06/09/19 12:14 pm * Is the patient Alert and Oriented? Yes * How many steps to enter\exit or inside your home? * PCP Dr. Nogueira * Pharmacy [facility] on [address] * Preadmission Environment Home with Family * ADLs Partial Dependent * Partial ADLs (Assistance needed) Bathing Dressing Medication Management * Equipment Bedside Commode Cane Glucometer Rolling Walker Wheelchair * List name and contact numbers for known caregivers / representatives who currently or will assist patient after discharge: Yumiko Rich - [facility] - [phone] * Verbal permission to speak to the caregivers and representatives has been obtained from the patient. Yes * Community resources currently utilized Home Health * Please name any agencies selected above. HERMELINDO signed for [facility] resumption. * Additional services required to return to the preadmission environment? No * Can the patient safely return to the preadmission environment? Yes * Has this patient been hospitalized within the prior 30 days at any hospital? No Patient Name: NLISA RICH Page [id number] at 1215 All edits/amendments must be made on the electronic document DICTATION DATE: 06/09/19 1215 SUPERVISOR POWDERED METAL: EMILIANO 06/09/19 1215 RPT#: [id number] DC DATE: STATUS: ADM IN [facility] [address] [place] [address] END OF REPORT
--- NOTE | 2019-06-09 12:23 | MORECARE ---
CASE MANAGEMENT DISCHARGE SUMMARY PATIENT: NILSA RICH UNIT: [id number] ADM DATE: 06/06/19 AGE: 64 : 53 SEX: M ROOM/BED: D.1208 AUTHOR: EDGARD RIOS PHYSICIAN: REFERRING PHYSICIAN: SERGIO JORGENSEN MD DATE OF SERVICE: 06/09/19 Discharge Plan Patient Name: NILSA RICH Facility: [facility]:[place] : 1955 Planned Disposition: Home with Home Health Anticipated Discharge Date: 06/11/19 Discharge Date: Expected LOS: 5 Initial Reviewer: [email or web address] Initial Review Date: 06/07/2019 Generated: 06/09/19 1:23 pm Comments DCP- Discharge Planning Updated by [email or web address]: Swati Ocampo on 06/09/19 11:[address] Patient Name: NILSA RICH Admission Status: ER Accout number: [id number] Admission Date: 06-06-2019 : 1955 Admission Diagnosis: Attending: SERGIO JORGENSEN Current LOS: 3 Anticipated DC Date: 06-11-2019 Planned Disposition: Home with Home Health Primary Insurance: [email or web address] Discharge Planning Comments: DC PLAN: Return home with and resumption of [facility]. DC NEEDS: Resumption of [facility]. CM met with patient to complete initial dc planning assessment. CM educated patient on the CM role and verbal consent given by patient to complete assessment. CM verified patient's address, phone number, and emergency contact phone numbers. Patient lives at home with his whom is his primary cg. He requires assistance with most adl's and medication management. He currently has [facility] and he wishes to resume at discharge. HERMELINDO signed for [facility] and placed in his chart. At discharge patient plans to return home with his and feels this is a safe discharge. Patient denied known discharge needs at this time. Patient reports his will transport him home at time of discharge. CM will continue to follow and will assist as needed with dc plans/needs. Change Lead: Swati Ocampo RN [facility] DCPIA - Discharge Planning Initial Assessment Updated by [email or web address]: Swati Ocampo on 06/09/19 12:14 pm * Is the patient Alert and Oriented? Yes * How many steps to enter\exit or inside your home? * PCP Dr. Nogueira * Pharmacy [facility] on [address] * Preadmission Environment Home with Family * ADLs Partial Dependent * Partial ADLs (Assistance needed) Bathing Dressing Medication Management * Equipment Bedside Commode Cane Glucometer Rolling Walker Wheelchair * List name and contact numbers for known caregivers / representatives who currently or will assist patient after discharge: Yumiko Rich - [facility] - [phone] * Verbal permission to speak to the caregivers and representatives has been obtained from the patient. Yes * Community resources currently utilized Home Health * Please name any agencies selected above. HERMELINDO signed for [facility] resumption. * Additional services required to return to the preadmission environment? No * Can the patient safely return to the preadmission environment? Yes * Has this patient been hospitalized within the prior 30 days at any hospital? No Last DP export: 06/09/19 11:15 a Patient Name: NILSA RICH Page 13713 at 1223 All edits/amendments must be made on the electronic document DICTATION DATE: 06/09/19 1223 CHOCOLATIER: EMILIANO 06/09/19 1223 RPT#: [id number] DC DATE: STATUS: ADM IN [facility] [address] [place] [address] END OF REPORT
--- NOTE | 2019-06-09 14:44 | NUR ---
PATIENT REPORTS THAT HE IS I WITH GAIT AND TRANSFERS AND ADLS AND DOES NOT NEED THERAPY AT THIS TIME.
[2019-06-09 18:32] VITALS: BP 131/56
--- NOTE | 2019-06-09 19:50 | NUR ---
REC'D TO CARE. MENTAL HEALTH PROFESSIONAL PER FLOWSHEET. PT UP AMBULATED FROM BED TO CHAIR. VSS. DENIES PAIN OR NEEDS. C/L IN REACH.
[2019-06-09 23:00] VITALS: BP 125/58
--- NOTE | 2019-06-09 23:00 | NUR ---
PT VOIDED CLEAR, YELLOW URINE IN URINAL, AND EMPTIED ILESTOMY INDEPENDENTLY - THICK BROWN STOOL NOTED. PT REMAINS UP IN CHAIR. DENIES NEEDS. C/L IN REACH.
--- NOTE | 2019-06-10 01:00 | NUR ---
PT LYING IN BED, RESTING WITH EYES CLOSED, NO SIGN OF DISTRESS. C/L IN REACH.
--- NOTE | 2019-06-10 03:30 | NUR ---
PT UP TO VOID, THEN UP IN CHAIR. VSS. PT GIVEN FRESH WATER, DENIES OTHER NEEDS.
[2019-06-10 03:45] VITALS: BP 130/46
[2019-06-10 06:08] LABS: BASOPHILS 0 % (0-2); EOSINOPHILS 5.4 % (0-7); HEMATOCRIT 25.7 % (42.0-54.0); HEMOGLOBIN 8.6 g/dL (13.5-17.5); IMMATURE GRANULOCYTES 0.3 % (0-5); LYMPHOCYTES 9.6 % (15-50); MCHC 33.5 g/dL (31.0-37.0); MCV 89.5 fL (80.0-100.0); MONOCYTES 8.3 % (2-11); NEUTROPHILS 76.4 % (40-80); PLATELET COUNT 167 10x3/uL (130-400); RBC 2.87 10x6/uL (4.20-6.10)
[2019-06-10 06:25] LABS: ANION GAP 11.7 mmol/L (8-16); CALCIUM 8.7 mg/dL (8.5-10.1); CARBON DIOXIDE 21.4 mmol/L (21.0-32.0); CREATININE - SERUM 1.7 mg/dL (0.6-1.3); POTASSIUM - SERUM 4.1 mmol/L (3.5-5.1); WBC 6.9 10x3/uL (4.8-10.8)
[2019-06-10 07:30] VITALS: BP 118/53
--- NOTE | 2019-06-10 07:30 | NUR ---
PT ALERT AND ORIENTED. VSS AT THIS TIME. RR EVEN AND UNLABORED. NO DISTRESS NOTED. WILL CONTINUE TO MONITOR. 0830- PT SPILLED FECES. PT CLEANED, LINENS AND GOWN CHANGED.
[2019-06-10] MEDS ORDERED: PREVALITE POWD231 GM PO (08:40)
--- NOTE | 2019-06-10 14:06 | NUR ---
PORT ACCESS AND PERIPHERAL IV D/C WITH CATHETER TIP INTACT. D/C PAPERWORK REVIEWED AND SIGNED, NO FURTHER QUESTIONS AND VERBALIZES UNDERSTANDING. ALL BELONGINGS SENT WITH PT. LEFT VIA WHEELCHAIR TO PERSONAL VEHICHLE.
--- NOTE | 2019-06-10 16:58 | MORECARE ---
CASE MANAGEMENT DISCHARGE SUMMARY PATIENT: NILSA RICH UNIT: [id number] ADM DATE: 06/06/19 AGE: 64 : 53 SEX: M ROOM/BED: D.1208 AUTHOR: EDGARD RIOS PHYSICIAN: REFERRING PHYSICIAN: SERGIO JORGENSEN MD DATE OF SERVICE: 06/10/19 Discharge Plan Patient Name: NILSA RICH Facility: [facility]:[place] : 1955 Planned Disposition: Home with Home Health Anticipated Discharge Date: 06/11/19 Discharge Date: 06/10/2019 Expected LOS: 5 Initial Reviewer: [email or web address] Initial Review Date: 06/07/2019 Generated: 06/10/19 5:58 pm DCP- Discharge Planning Updated by [email or web address]: Swati Ocampo on 06/09/19 11:[address] Patient Name: NILSA RICH Admission Status: ER Accout number: [id number] Admission Date: 06-06-2019 : 1955 Admission Diagnosis: Attending: SERGIO JORGENSEN Current LOS: 3 Anticipated DC Date: 06-11-2019 Planned Disposition: Home with Home Health Primary Insurance: [employer] Discharge Planning Comments: DC PLAN: Return home with and resumption of [facility]. DC NEEDS: Resumption of [facility]. CM met with patient to complete initial dc planning assessment. CM educated patient on the CM role and verbal consent given by patient to complete assessment. CM verified patient's address, phone number, and emergency contact phone numbers. Patient lives at home with his whom is his primary cg. He requires assistance with most adl's and medication management. He currently has [facility] and he wishes to resume at discharge. HERMELINDO signed for [facility] and placed in his chart. At discharge patient plans to return home with his and feels this is a safe discharge. Patient denied known discharge needs at this time. Patient reports his will transport him home at time of discharge. CM will continue to follow and will assist as needed with dc plans/needs. Clay Molder: Swati Ocampo RN [facility] DCPIA - Discharge Planning Initial Assessment Updated by [email or web address]: Swati Ocampo on 06/09/19 12:14 pm * Is the patient Alert and Oriented? Yes * How many steps to enter\exit or inside your home? * PCP Dr. Nogueira * Pharmacy [facility] on [address] * Preadmission Environment Home with Family * ADLs Partial Dependent * Partial ADLs (Assistance needed) Bathing Dressing Medication Management * Equipment Bedside Commode Cane Glucometer Rolling Walker Wheelchair * List name and contact numbers for known caregivers / representatives who currently or will assist patient after discharge: Yumiko Rich - [facility] - [phone] * Verbal permission to speak to the caregivers and representatives has been obtained from the patient. Yes * Community resources currently utilized Home Health * Please name any agencies selected above. HERMELINDO signed for [facility] resumption. * Additional services required to return to the preadmission environment? No * Can the patient safely return to the preadmission environment? Yes * Has this patient been hospitalized within the prior 30 days at any hospital? No Last DP export: 06/09/19 11:23 a Patient Name: NILSA RICH Page [id number] at 1658 All edits/amendments must be made on the electronic document DICTATION DATE: 06/10/191657 TYPE COPYIST: EMILIANO 06/10/191657 RPT#: [id number] DC DATE:06/10/19 STATUS: DIS IN [facility] [address] [place] [address] END OF REPORT
--- NOTE | 2019-06-11 10:58 | MORECARE ---
CASE MANAGEMENT DISCHARGE SUMMARY PATIENT: NILSA RICH UNIT: [id number] ADM DATE: 06/06/19 AGE: 64 : 53 SEX: M ROOM/BED: D.1208 AUTHOR: EDGARD RIOS PHYSICIAN: REFERRING PHYSICIAN: SERGIO JORGENSEN MD DATE OF SERVICE: 06/11/19 Discharge Plan Patient Name: INLSA RICH Facility: [facility]:[place] : 1955 Planned Disposition: Home with Home Health Anticipated Discharge Date: 06/11/19 Discharge Date: 06/10/2019 Expected LOS: 5 Initial Reviewer: [email or web address] Initial Review Date: 06/07/2019 Generated: 06/11/19 11:58 am DCP- Discharge Planning Updated by [email or web address]: Swati Ocampo on 06/09/19 11:[address] Patient Name: NILSA RICH Admission Status: ER Accout number: [id number] Admission Date: 06-06-2019 : 1955 Admission Diagnosis: Attending: SERGIO JORGENSEN Current LOS: 3 Anticipated DC Date: 06-11-2019 Planned Disposition: Home with Home Health Primary Insurance: [employer] Discharge Planning Comments: DC PLAN: Return home with and resumption of [facility]. DC NEEDS: Resumption of [facility]. CM met with patient to complete initial dc planning assessment. CM educated patient on the CM role and verbal consent given by patient to complete assessment. CM verified patient's address, phone number, and emergency contact phone numbers. Patient lives at home with his whom is his primary cg. He requires assistance with most adl's and medication management. He currently has [facility] and he wishes to resume at discharge. HERMELINDO signed for [facility] and placed in his chart. At discharge patient plans to return home with his and feels this is a safe discharge. Patient denied known discharge needs at this time. Patient reports his will transport him home at time of discharge. CM will continue to follow and will assist as needed with dc plans/needs. Card Doffer: Swati Ocampo RN [facility] DCPIA - Discharge Planning Initial Assessment Updated by [email or web address]: Swati Ocampo on 06/09/19 12:14 pm * Is the patient Alert and Oriented? Yes * How many steps to enter\exit or inside your home? * PCP Dr. Nogueira * Pharmacy [facility] on [address] * Preadmission Environment Home with Family * ADLs Partial Dependent * Partial ADLs (Assistance needed) Bathing Dressing Medication Management * Equipment Bedside Commode Cane Glucometer Rolling Walker Wheelchair * List name and contact numbers for known caregivers / representatives who currently or will assist patient after discharge: Yumiko Rich - spouse - [phone] * Verbal permission to speak to the caregivers and representatives has been obtained from the patient. Yes * Community resources currently utilized Home Health * Please name any agencies selected above. HERMELINDO signed for [facility] resumption. * Additional services required to return to the preadmission environment? No * Can the patient safely return to the preadmission environment? Yes * Has this patient been hospitalized within the prior 30 days at any hospital? No External Providers [facility] Next Contact Date: Service Request Date: Service Type: Resolution: Reviewer: Comments: Coverage Notice Reviewer: [email or web address] Aquilino Jarrett Notice Issued Date-Time: 06/10/2019 13:10 Notice Type: IM Discharge Notice Notice Delivered To: Patient Relationship to Patient: Self Security Lead Name: Delivery Method: HAND - Hand Delivered Natalie Days: Prior Verbal Notification: Recipient Understood Notice: Yes Recipient Signature: Yes Med Rec Note Co-signed by Attending: Coverage Notice Comment: Last DP export: 06/10/19 3:58 p Patient Name: NILSA RICH Page [phone] at 1058 All edits/amendments must be made on the electronic document DICTATION DATE: 06/11/19 1058 MEDICAID BILLING CLERK: EMILIANO 06/11/19 1058 RPT#: [id number] DC DATE:06/10/19 STATUS: DIS IN [facility] [address] [place] [address] END OF REPORT
== END 2019-06-10 14:09 | disposition home health service (06) | DRG 682 ==
LOC: D.ER 19:37 → D.M3 22:58
PROVIDERS: Family Medicine; Surgery; ADMIT Internal Medicine Nephrology; ATTEND Internal Medicine Nephrology
DX: N17.9 Acute kidney failure, unspecified (principal); E43 Unspecified severe protein-calorie malnutrition; E87.2 Acidosis; E11.9 Type 2 diabetes mellitus without complications; E78.5 Hyperlipidemia, unspecified; I10 Essential (primary) hypertension; D64.9 Anemia, unspecified; Z68.31 Body mass index [BMI] 31.0-31.9, adult

== ENCOUNTER 2019-06-25 11:03 | Outpatient (CLI) | payer MEDICARE ==
[~2019-06-25] VITALS: Ht 180.3 cm; Wt 100.5 kg
[~2019-06-25 11:03] MED LIST changes: +AUGMENTIN 875-11 TAB PO; +MACRODANTIN100 MG PO; +PREVALITE POWD231 GM PO
[2019-06-25 11:49] VITALS: BP 133/61; Ht 180.3 cm; Wt 100.5 kg
[2019-06-25 11:54] LABS: BASOPHILS 0.2 % (0-2); EOSINOPHILS 3.3 % (0-7); HEMATOCRIT 34.6 % (42.0-54.0); HEMOGLOBIN 11.5 g/dL (13.5-17.5); IMMATURE GRANULOCYTES 0.5 % (0-5); LYMPHOCYTES 11.7 % (15-50); MCH 30.3 pg (26.0-34.0); MCHC 33.2 g/dL (31.0-37.0); MCV 91.3 fL (80.0-100.0); MONOCYTES 5.1 % (2-11); NEUTROPHILS 79.2 % (40-80); RBC 3.79 10x6/uL (4.20-6.10); RDW 14.4 % (11.5-14.5); WBC 10.5 10x3/uL (4.8-10.8)
[2019-06-25 11:55] LABS: ANION GAP 16.5 mmol/L (8-16); CALCIUM 9.9 mg/dL (8.5-10.1); CARBON DIOXIDE 24.6 mmol/L (21.0-32.0); CREATININE - SERUM 1.8 mg/dL (0.6-1.3); POTASSIUM - SERUM 4.1 mmol/L (3.5-5.1)
[2019-06-25 12:00] LABS: PLATELET COUNT 339 10x3/uL (130-400)
[2019-06-25 12:42] LABS: APPEARANCE HAZY (CLEAR); BACTERIA FEW /hpf (NONE SEEN); BILIRUBIN NEGATIVE (NEGATIVE); COLOR YELLOW (YELLOW); EPITHELIAL CELLS 0-5 /hpf (0-5); GLUCOSE NEGATIVE (NEGATIVE); HYALINE CAST RARE /lpf (NONE SEEN); KETONE SMALL mg/dL (NEGATIVE); MUCUS <1+ /lpf (NONE SEEN); NITRITE NEGATIVE (NEGATIVE); PROTEIN TRACE mg/dL (NEGATIVE); RED CELLS - URINE 0-5 /hpf (0-5); SPECIFIC GRAVITY 1.025 (1.005-1.020); WHITE CELLS - URINE OCC /hpf (0-5)
--- NOTE | 2019-06-25 14:45 | NUR ---
PT 2L INFUSION COMPLETE AT THIS TIME. NAD NOTED.
--- NOTE | 2019-06-25 14:50 | NUR ---
PT DC INSTRUCTIONS REVIEWED AT THIS TIME. PT VERBALIZES UNDERSTANDING. PT IV REMOVED AT THIS TIME INTACT, NO REDNESS OR SWELLING NOTED AT SITE.
== END 2019-06-25 15:00 | disposition home or self-care (01) ==
LOC: D.LAB 11:03 → D.OPS 13:00 → D.LAB 15:00
PROVIDERS: ATTEND Surgery
DX: C18.9 Malignant neoplasm of colon, unspecified (principal); C61 Malignant neoplasm of prostate

== ENCOUNTER 2019-10-18 10:26 | Emergency (ER) | payer MEDICARE ==
[~2019-10-18] VITALS: Ht 180.3 cm; Wt 104.3 kg
[2019-10-18 10:29] VITALS: Ht 180.3 cm; Wt 104.3 kg
[2019-10-18 11:07] LABS: BASOPHILS 0.2 % (0-2); HEMATOCRIT 27.9 % (42.0-54.0); HEMOGLOBIN 8.9 g/dL (13.5-17.5); IMMATURE GRANULOCYTES 1.1 % (0-5); MCH 34.8 pg (26.0-34.0); MCHC 31.9 g/dL (31.0-37.0); MEAN PLATELET VOLUME 9.4 fL (7.4-10.4); MONOCYTES 8.9 % (2-11); NEUTROPHILS 71.8 % (40-80); RBC 2.56 10x6/uL (4.20-6.10); RDW 14.6 % (11.5-14.5); WBC 4.7 10x3/uL (4.8-10.8)
[2019-10-18 11:11] LABS: PLATELET COUNT 156 10x3/uL (130-400)
[2019-10-18 11:21] LABS: CALCIUM 8.2 mg/dL (8.5-10.1); CREATININE - SERUM 1.5 mg/dL (0.6-1.3)
[2019-10-18 11:28] LABS: ALBUMIN 3.3 g/dL (3.4-5.0); BILIRUBIN - TOTAL 0.34 mg/dL (0.2-1.3); PROTEIN - SERUM 6.6 g/dL (6.4-8.2)
[2019-10-18] MEDS ORDERED: TORADOL10 MG PO (13:44)
[2019-10-18] MEDS ORDERED: FLOMAX0.4 MG PO (13:44)
[2019-10-18 13:51] VITALS: BP 132/78
== END 2019-10-18 13:52 | disposition home or self-care (01) ==
LOC: D.ER 10:26
PROVIDERS: Emergency Medicine
DX: N20.0 Calculus of kidney (principal); R31.9 Hematuria, unspecified; E11.9 Type 2 diabetes mellitus without complications; Z79.84 Long term (current) use of oral hypoglycemic drugs; I25.2 Old myocardial infarction; Z95.1 Presence of aortocoronary bypass graft